=== PATIENT | male | born 1960 | race Caucasian/White ===

== ENCOUNTER 2016-10-06 23:59 | Inpatient (IN) | payer MEDICARE ==
--- NOTE | ~2016-10-06 | CO ---
Unit #: [id number] #: [id number] Patient: JOMAR LAKE [id number] [address] [address] [id number] I MR#: [id number] NAME: JOMAR LAKE ROOM: 84466 Age: 56 Sex: M Admission Date: 10/07/2016 : 1960 Attending Physician: Darrick Villegas M.D. Primary Care Physician: No Primary Care Physician CONSULTATION REPORT REASON FOR ADMISSION Volume overload/dyspnea. REASON FOR CONSULTATION Diabetic management. HISTORY OF PRESENT ILLNESS The patient is a very pleasant 56-year-old male, longstanding history of noncompliance, prior history of coronary artery disease, heart failure, AICD placement. Continues to smoke on a daily basis. He has a prior history of noncompliance, sleep apnea with noncompliance, as well. He states he became more and more dyspneic over the past several days. He has had progressive edema, progressive increase in abdominal girth. He subsequently was admitted for above. Currently he is on both Lasix drip, as well as heparin drip, per cardiology service. We were asked to evaluate in regard to his prior history of diabetes. PAST MEDICAL HISTORY 1. Cirrhosis. 2. Chronic respiratory failure. 3. Chronic pain syndrome. 4. Heart failure, likely systolic and diastolic, with ejection fraction, I believe, close to 25%. 5. Coronary artery disease history with numerous stents, I believe close to 17. 6. Dual-chamber ICD placement. 7. Hypertension. 8. Hyperlipidemia. 9. Sleep apnea. SOCIAL HISTORY Positive tobacco use. Social alcohol use. Negative illicit drug use. FAMILY HISTORY Positive coronary artery disease. ALLERGIES Ativan. HOME MEDICATIONS Include amiodarone, Aricept, Bumex, Combivent, Eliquis, Neurontin, Unit #: [id number] #: [id number] Patient: JOMAR LAKE hydralazine, Imdur, Levemir, lisinopril, NovoLog, potassium, Protonix, Ranexa, simvastatin, Spiriva, Symbicort. PHYSICAL EXAMINATION VITAL SIGNS: Temperature 97.9, pulse 61, respiratory rate 18, blood pressure 127/62. GENERAL APPEARANCE: The patient is a morbidly obese 56-year-old male who is lying comfortably. No acute distress. HEAD EXAM: Atraumatic, normocephalic. EAR EXAM: Tympanic membranes do not reveal any erythema or injection. NECK: JVD noted. No accessory muscle use noted. CVS: S1, S2. No murmur heard. RESPIRATORY: Very poor air exchange is noted. GI/ABDOMEN: Distention noted. Nontender. LOWER EXTREMITIES: Noted is 2 to 3+ lower extremity edema. Right lower extremity is currently dressed. Left lower extremity shows weeping sores present on plantar surface of the left foot. NEUROLOGIC EXAM: Patient A and O x3. No evidence of any focal nerve deficits. DIAGNOSTIC STUDIES LABS: Laboratory studies how a hemoglobin A1C of 9.4%. INITIAL ADMISSION DIAGNOSES 1. Dyspnea, likely multifactorial in origin. 2. Acute on chronic systolic heart failure. 3. Longstanding history of noncompliance. 4. Coronary artery disease. 5. Chronic pain syndrome. 6. Acute on chronic respiratory failure. 7. Obstructive sleep apnea with noncompliance. 8. Prior history of hypertension. 9. Hyperlipidemia. 10. Coronary artery disease. 11. Type 2 diabetes. PLAN We will follow along with you, Dr. Villegas, in regard to the care of this patient. Patient will be placed on a NovoLog low dose sliding scale insulin with Accu-Cheks q.a.c., q.h.s. Pulmonary service has already been consulted, as well. We will ask wound care to evaluate in regard to his bilateral lower extremity wounds, as well. Further hospital course to follow. Dictated by... Astrid Mascorro/clemencia TD: 10/07/2016 12:43 JOB #: [id number] Unit #: [id number] #: [id number] Patient: JOMAR LAKE CONSULTATION REPORT Page 1 of 1 X Lior Magdaleno MD CONSULTATION REPORT
--- NOTE | ~2016-10-06 | EKG ---
PATIENT: JOMAR LAKE UNIT #: [id number] Ventricular Rate: 81 BPM Atrial Rate: 77 BPM QRS Duration: 254 ms Q-T Interval: 580 ms QTC Calculation(Bezet): 673 ms Calculated R Murphy: -127 degrees Calculated T Murphy: 23 degrees Diagnosis Line: Wide QRS rhythm with occasional Premature Diagnosis Line: ventricular complexes Diagnosis Line: Right bundle branch block with repolarization Diagnosis Line: abnormality Diagnosis Line: Inferior infarct , age undetermined Diagnosis Line: Abnormal ECG Diagnosis Line: When compared with ECG of 07-OCT-2016 01:58, Diagnosis Line: (unconfirmed) Diagnosis Line: Wide QRS rhythm has replaced Electronic Diagnosis Line: ventricular pacemaker Diagnosis Line: Confirmed by DENISE JANG MD ([id number]) on 10/07/2016 Diagnosis Line: 2:46:32 PM INTERPRETING MD: SUHAIL DOCKERY
--- NOTE | ~2016-10-06 | CO ---
Unit #: [id number] #: [id number] Patient: JOMAR LAKE [id number] [address] [place], [place] [address] [id number] I MR#: [id number] NAME: JOMAR LAKE ROOM: 324 Age: 56 Sex: M Admission Date: 10/07/2016 : 1960 Attending Physician: Candace Hall M.D. Primary Care Physician: Joyce Primary Care Physician Consultation Date: 10/10/2016 CONSULTATION REPORT REASON FOR CONSULTATION Hematuria. HISTORY This 56-year-old man with multiple significant medical problems has been admitted for dyspnea and prolonged diuresis. A brief tinge of blood was noted in his Blair catheter urine today, which he ascribes to stepping on it accidentally. It cleared promptly. He does have an impressive smoking history but he has never had any gross hematuria. He denies any urinary difficulties or history of infection. He had a small stone pass many years ago. The hematuria he experienced at bedside was transient and a direct result of catheter trauma. He is clear. PAST MEDICAL HISTORY Includes cirrhosis, chronic respiratory failure, chronic pain syndrome, congestive heart failure, coronary artery disease, AICD, PTCA, hypertension, dyslipidemia, morbid obesity, sleep apnea, tobacco abuse. PAST SURGICAL HISTORY Surgeries include PTCA, ICD. MEDICATIONS Amiodarone, Aricept, Bumex, Combivent, Eliquis, gabapentin, hydralazine, Imdur, Levemir, lisinopril, NovoLog, potassium, Protonix, Ranexa, simvastatin, Spiriva, Symbicort. ALLERGIES Ativan. FAMILY HISTORY Negative for prostate cancer. SOCIAL HISTORY Prior three pack per day smoker, now still smokes but less. REVIEW OF SYSTEMS Includes dyspnea, lower extremity and abdominal edema. Chronic pain, sleep apnea, otherwise negative system review. PHYSICAL EXAMINATION GENERAL: Patient is morbidly obese, sitting up in his chair with clear yellow urine and Blair catheter bag. ABDOMEN: 08/19/2106, no appreciable findings. : Normal circumcised penis. Testes normal descent. Unit #: [id number] #: [id number] Patient: JOMAR LAKE RECTAL: Digital deferred. EXTREMITIES: Marked edema. DIAGNOSTIC STUDIES LABORATORIES: Creatinine 0.8, glucose 328. CBC - unremarkable. Admission urinalysis normal with no blood. Urine culture was sent today pending. IMPRESSION Hematuria due to Blair catheter in context of anticoagulation therapy. No clear indication for workup. PLAN Would followup on urine cultures sense it is done but otherwise removed catheter when satisfied with diuresis. Please reconsult as needed. Dictated by... Astrid Christine/abhilash TD: 10/11/2016 08:08 JOB #: [id number] CC: Darrick Villegas M.D. CONSULTATION REPORT Page 1 of 1 X Bimal Bahena MD X CONSULTATION REPORT
--- NOTE | ~2016-10-06 | EKG ---
PATIENT: JOMAR LAKE UNIT #: [id number] Ventricular Rate: 63 BPM Atrial Rate: 63 BPM P-R Interval: 160 ms QRS Duration: 128 ms Q-T Interval: 550 ms QTC Calculation(Bezet): 562 ms P [place]: 50 degrees Calculated R [place]: 80 degrees Calculated T [place]: 95 degrees Diagnosis Line: Sinus rhythm with occasional Premature ventricular Diagnosis Line: complexes Diagnosis Line: Possible Left atrial enlargement Diagnosis Line: Non-specific intra-ventricular conduction block Diagnosis Line: Abnormal ECG Diagnosis Line: When compared with ECG of 07-OCT-2016 06:09, Diagnosis Line: Premature ventricular complexes are now Present Diagnosis Line: T wave inversion less evident in Anterolateral Diagnosis Line: leads Diagnosis Line: QT has lengthened Diagnosis Line: Confirmed by STEVO DENNIS MD ([id number]) on 10/09/2016 Diagnosis Line: 10:48:59 PM INTERPRETING MD: JEANNIE DOCKERY
--- NOTE | ~2016-10-06 | EKG ---
PATIENT: JOMAR LAKE UNIT #: [id number] Ventricular Rate: 66 BPM Atrial Rate: 66 BPM P-R Interval: 208 ms QRS Duration: 124 ms Q-T Interval: 464 ms QTC Calculation(Bezet): 486 ms P [place]: 45 degrees Calculated R [place]: 86 degrees Calculated T [place]: 118 degrees Diagnosis Line: Normal sinus rhythm Diagnosis Line: Non-specific intra-ventricular conduction delay Diagnosis Line: ST and T wave abnormality, consider anterolateral Diagnosis Line: ischemia Diagnosis Line: Abnormal ECG Diagnosis Line: No previous ECGs available Diagnosis Line: Confirmed by DENISE JANG MD ([id number]) on 10/07/2016 Diagnosis Line: 2:47:02 PM INTERPRETING MD: SUHAIL DOCKERY
--- NOTE | ~2016-10-06 | DS ---
Unit #: [id number] #: [id number] Patient: JOMAR LAKE [id number] [place] [address] [facility]. [place], [place] [address] [id number] I MR#: [id number] NAME: JOMAR LAKE ROOM: 324 Age: 56 Sex: M Admission Date: 10/07/2016 : 1960 Discharge Date: 10/12/2016 Attending Physician: Candace Hall M.D. DISCHARGE SUMMARY ADDENDUM TO [facility] #[id number]. ADDENDUM The patient's discharge was delayed a couple of days because of arrhythmias. His awake overnight monitor showed a wide complex tachycardia; however, the ventricular rate was about 100 beats per minute. He would then simultaneously go back into normal sinus rhythm but he does have an interventricular conduction delay. When he is in normal sinus rhythm, it does look like he has some bigeminy. The patient's beta rufus was changed from carvedilol to metoprolol tartrate. That was started yesterday. The patient last night continued to have some runs of arrhythmia. It is noted that his potassium and magnesium were normal. In looking back on his previous records, he had been on amiodarone at one point. [employer] customer service representative, [place], interrogated the device again for the second time on his admission. She said it was not a ventricular tachycardia that could be shocked. The ventricular rate was slow at about 100 beats per minute which likely she thought maybe he was switching to a bundle branch block and some kind of sinus tachycardia. The device was functioning properly. In looking back on his previous medications, he had been on amiodarone at one time and that will be added to his regimen. The patient insists on going home today. For the past several hours, there have been no runs of this wide complex tachycardia or PVCs. He got a loading dose of amiodarone 400 mg p.o. times one and wrote a prescription for amiodarone 200 mg p.o. twice daily for one week and then decreased down to 200 mg p.o. daily maintenance dose. Also, increased his beta rufus to metoprolol tartrate 50 mg p.o. twice daily. The patient is also on Entresto along with Eliquis. We will continue. The patient reports to me that he made an appointment with Dr. Tilley this afternoon and he wants to leave to go see him. I did explain to the patient he needed to take all of his medications home and take the discharge instructions with the medications listed to see Dr. Tilley. Dr. Tilley is his cash applications representative at [facility]. The patient will leave in stable condition. No complaints of chest pain, palpitations, shortness of breath or no distress. The patient wants to follow up with his cash applications representative, Dr. Tilley. The patient has been encouraged to be compliant with his medical regimen along with his appointments. On time of discharge, the patient's vital signs are stable. No signs or symptoms of acute congestive heart failure, unstable angina and his lungs appear to be diminished but clear. Dictated by... Sheila Doshi A.P.R.N. for Unit #: [id number] #: [id number] Patient: JOMAR LAKE M.D. CEC/desirae TD: 10/12/2016 14:29 JOB #: [id number] DISCHARGE SUMMARY Page 1 of 1 X Sheila Doshi APRN X DISCHARGE SUMMARY
--- NOTE | ~2016-10-06 | CR72 ---
[facility] A Service of [facility] RADIOLOGY TEXT RESULTS PATIENT: JOMAR LAKE [facility] 324-01 : 56 UNIT #: [id number] AGE: [address]: Candace Hall MD SEX: M ORDER DR: [id number] [facility] [address] [place], [place] [address] [id number] I MR#: [id number] Acc #: [id number] NAME: JOMAR LKAE : 1960 SEX: M STUDY DATE/TIME: 10/07/2016 2:22 UNIT: CEDOF ROOM: 77600 STUDY DESCRIPTION: CR Chest Single View Portable Attending Physician: Darrick Villegas M.D. Ordering Physician: Ash Berrios Aprn MEDICAL IMAGING REPORT This report is preliminary unless electronic signature is present EXAM Chest x-ray 10/07/2016 HISTORY 56-year-old male in the ED complaining of 1-week history of chest pain, shortness of air and leg swelling. TECHNIQUE AP portable chest x-ray. FINDINGS The exam shows stable moderate cardiomegaly and postop changes CABG surgery. Mild diffuse interstitial prominence is exaggerated by shallow lung expansion but does appear slightly more prominent today than on yesterday's study. Correlate for mild vascular congestion. Fluid or pleural thickening is again noted in the left costophrenic angle. Cardiac pacemaker. IMPRESSION 1. Cardiomegaly with possible mild vascular congestion. 2. CABG. 3. Fluid or pleural thickening left costophrenic angle. Dictated by... Jorge A Abdalla M.D. THIS IS AN ELECTRONICALLY VERIFIED REPORT Jorge A Abdalla M.D. at 10/12/2016 9:15 AM SHANNONW/aure TD: 10/07/2016 03:09 JOB #: [id number] [facility] A Service [facility] RADIOLOGY TEXT RESULTS PATIENT: JOMAR LAKE LOCATION: [facility] 324-01 : 56 UNIT #: [id number] AGE: [address]: Candace Hall MD SEX: M ORDER DR: MEDICAL IMAGING REPORT Page 1 of 1 COPY
--- NOTE | ~2016-10-06 | A ---
[facility] Nutrition Therapy DATE: 10/07/16 Patient: JOMAR LAKE Physician: ASHLY Address: [address] [place] [address] Room/Bed: [address] [place] [address], Zip: [place] [phone] Admit Date: 10/07/16 Date of : 56 Height: 5 9 Weight: 273 124 NUTRITIONAL ASSESSMENT: REASON: Consult received for low sodium diet education Assessment: RD spoke with the pt at bedside. Pt admitted that he does not follow a specific diet, and tends to eat what he wants. Pt does not read nutrition labels. RD educated the pt on how to follow a low sodium diet, and how to utilize nutrition labels to do so. Pt seemed somewhat interested in learning about the prescribed diet, and interacted with RD throughout education. Mild/moderate compliance expected. RD provided the pt with printed materials for reference, and encouraged him to contact RD with any further questions. Recommendations: 1. Pt to follow 2 gram Na+/ CC diet as prescribed by . 2. Contact RD with any nutritional questions. Please contact RD with any further nutritional needs. Respectfully, SULLY FAROOQ RD, LD Food and Nutritional Services [facility] cc: client file
--- NOTE | ~2016-10-06 | HP ---
Unit #: [id number] #: [id number] Patient: JOMAR LAKE [id number] [address] [place], [place] [address] [id number] Jody MR#: [id number] NAME: JOMAR LAKE ROOM: 68226 Age: 56 Sex: M Admission Date: 10/07/2016 : 1960 Attending Physician: Darrick Villegas M.D. Primary Care Physician: No Primary Care Physician HISTORY AND PHYSICAL CHIEF COMPLAINT Dyspnea. HISTORY OF PRESENT ILLNESS Mr. Lake is a pleasant 56-year-old gentleman with a history of coronary artery bypass grafting and atrial implantable cardioverter defibrillator times 2. He has continued to smoke. He has a history of diabetes, hypertension and dyslipidemia, but denies a family history of coronary disease. He has a CPAP, but does not use it. He notes that over the past week he has become more and more dyspneic, coughing more and more, noted progressive edema, and progressive increase in abdominal girth. He has a known ejection fraction of 25% back in 2008, at which time he underwent his coronary artery bypass grafting. I was informed after I completed the history, physical and orders that the patient was a Dr. Hall patient. He will be transferred over to her care. He told me that his learning center coordinator was Dr. Tilley. PAST MEDICAL HISTORY 1. Cirrhosis. 2. Chronic respiratory failure. 3. Chronic pain syndrome. 4. Congestive heart failure. 5. Chronic systolic, ejection fraction 25%. 6. Coronary artery disease status post cardiac catheterization in 2008, showing mid LAD 100%, graft to the LAD good flow, saphenous vein graft to the diagonal good flow, 90% circumflex with saphenous vein graft to the first marginal circumflex normal, 99% in-stent stenosis of the RCA, with 99% occlusion of the saphenous vein graft to the posterior descending artery of the RCA. 7. Dual chamber ICD, cardioverted defibrillator, [employer], Dr. Estrella. Apparently replaced twice. 8. PTCA in 2008 of the RCA. 9. Hypertension. 10. Dyslipidemia. 11. Exogenous obesity. 12. Untreated obstructive sleep apnea. He has a machine at home, but says he does not like to use it. 13. Last echo on record 10/06/2014, ejection fraction 20%. SOCIAL HISTORY Unit #: [id number] #: [id number] Patient: JOMAR LAKE Continues to smoke on a regular basis. Nicotine patch placed. FAMILY HISTORY Negative for premature atherosclerotic disease. ALLERGIES Ativan. CURRENT MEDICATIONS 1. Amiodarone 200 mg daily. 2. Aricept 10 mg daily. 3. Bumex 2 mg daily. 4. Combivent inhaler. 5. Eliquis. 6. Gabapentin. 7. Hydralazine 25 mg t.i.d. 8. Imdur 60 mg daily. 9. Levemir. 10. Lisinopril 5 mg daily. 11. NovoLog insulin. 12. Potassium 20 mEq daily. 13. Protonix 40 mg daily. 14. Ranexa 1 g b.i.d. 15. Simvastatin 20 mg daily. 16. Spiriva 18 mcg per capsule. 17. Symbicort. PHYSICAL EXAMINATION GENERAL: Pleasant, alert, no acute distress. VITALS: Heart rate 64 and regular, respiratory rate 22, blood pressure 123/68, height 5'9", weight 284 pounds, BMI 41. PHYSICAL EXAMINATION GENERAL: Pleasant, alert, in no acute distress. VITAL SIGNS: Respiratory rate , blood pressure , heart rate and regular. SKIN: Warm and dry. No xanthelasma. MUSCULOSKELETAL: No missing digits. Moves easily for evaluation. NEUROLOGICAL: Appropriate mood and affect. Alert and oriented x3. HEENT: Pupils equal, round and reactive. No oral cyanosis. No icterus. NECK: Carotids clear to auscultation with no carotid bruits. Normal carotid upstroke bilaterally. Thyroid is normal in size and texture without masses or tenderness. CHEST: Pacemaker placed left upper chest. LUNGS: Rales one-half up bilaterally. CARDIAC: Normal point of maximum impulse. Normal S1 and S2. No S3, S4 or rub. ABDOMEN: Moderate ascites without tenderness. EXTREMITIES: No clubbing, cyanosis, 4+ edema bilaterally. Cannot assess distal pulses. Right leg is wrapped. DIAGNOSTIC STUDIES LABORATORY: Creatinine 0.8, potassium 4.1, sodium 133, magnesium not assessed. Troponin 0.03. Total cholesterol 117, triglycerides 72, HDL 54, TSH not yet returned. Hemoglobin A1c not yet returned. Hemoglobin 14.1, white blood cell count 10.9, platelets 152,000. CARDIOVASCULAR: ECG today shows sinus rhythm with T wave inversion V3 through V6. Last evening unusual tracings appeared to be biventricular Unit #: [id number] #: [id number] Patient: JOMAR LAKE pacing, with sinus rhythm first degree AV block. ASSESSMENT Acute on chronic systolic congestive heart failure. We reviewed his sodium intake and it is very high. He is on lisinopril currently. Will switch him over to Entresto. He will be transferred to Dr. Hall's service. Will start Lasix drip. He has had one liter out, but I estimate he has about 25 pounds of fluid on him currently between his ascites and his legs. Will have him instructed from dietitian. ASSESSMENT/PLAN 1. Tobacco abuse continues despite severe and significant coronary disease, bypasses and stents. Advised to discontinue smoking. 2. Exogenous obesity, morbid. 3. Hypertension, treated. 4. Dyslipidemia, treated. 5. Diabetes. We will have medicine see him. They also need to treat his chronic pain syndrome. 6. Untreated sleep apnea. Ask Dr. Rangel to stop by and see him for machine adjustment. 7. I suspect he will be here for four to five days to diurese him slowly, and get him to baseline. Dictated by Astrid Beltrán/guillermo TD: 10/07/2016 08:46 JOB #: [id number] CC: Raz Tilley IV., M.D. HISTORY AND PHYSICAL Page 1 of 1 X Darrick Villegas MD HISTORY AND PHYSICAL
--- NOTE | ~2016-10-06 | DS ---
Unit #: [id number] #: [id number] Patient: JOMAR LAKE [id number] [address] [address] [id number] I MR#: [id number] NAME: JOMAR LAKE ROOM: 324 Age: 56 Sex: M Admission Date: 10/07/2016 : 1960 Discharge Date: 10/10/2016 Attending Physician: Candace Hall M.D. Primary Care Physician: Joyce Primary Care Physician DISCHARGE SUMMARY ADMITTING DIAGNOSES 1. Acute on chronic systolic CHF. 2. Tobacco abuse. 3. CAD with history of CABG and stents. 4. Morbid obesity. 5. Hypertension. 6. Hyperlipidemia. 7. Diabetes mellitus. 8. Acute exacerbation of COPD. 9. Chronic kidney disease. DISCHARGE DIAGNOSES 1. Acute on chronic systolic congestive heart failure, compensated. 2. Tobacco abuse. 3. Coronary artery disease with history of coronary artery bypass graft and stents. 4. Morbid obesity. 5. Hypertension. 6. Hyperlipidemia. 7. Diabetes mellitus. 8. Chronic obstructive pulmonary disease, improved at the time of discharge. 9. Chronic kidney disease. CONSULTING PHYSICIANS 1. Dr. Rangel for pulmonary. 2. Dr. Magdaleno for internal medicine. HOSPITAL COURSE The patient is a 56-year-old male who presented to [facility] with complaints of shortness of breath. He follows with Dr. Tilley. He was started on a Lasix drip for acute on chronic systolic CHF and he was also started on IV Solu-Medrol as well as DuoNeb, Dulera, and Zithromax by pulmonary. The patient also has probable obstructive sleep apnea, but refuses a workup for sleep apnea. The patient was later changed over to oral prednisone and IV Bumex on 10/10/2016. The patient denies shortness of breath at the time of discharge. DIAGNOSTIC STUDIES LABORATORY: Labs at the time of discharge from 10/09/2016: Sodium 133, potassium 3.6, chloride 84, CO2 41, glucose 328, BUN 19, creatinine 0.8, magnesium 1.9, white blood cells 10.1, hemoglobin 14, hematocrit 43.3, and platelets are 150. Unit #: [id number] #: [id number] Patient: JOMAR LAKE IMAGING: Chest x-ray from 10/08/2016 shows cardiomegaly. Mild vascular congestion. Slight increase in left base opacity, probably secondary to left pleural effusion. At the time of discharge, the patient's vitals are stable. Blood pressure is 145/97, heart rate 69, respiratory rate is 18, and temperature is 98. DISCHARGE MEDICATIONS 1. Coreg 12.5 mg twice daily. 2. Symbicort 160 two puffs b.i.d. 3. Aricept 23 mg daily. 4. Bumex 1 mg twice daily. 5. Zocor 20 mg daily. 6. Levemir 30 units subcu. q.a.m. 7. Combivent mini-nebs 4 times daily. 8. Prednisone 20 mg with tapered dose. 9. Entresto 24/ twice daily. 10. Eliquis 5 mg twice daily. 11. Neurontin 800 mg q.6 hours. 12. Lexapro 10 mg daily. 13. Phenergan 25 mg 3 times daily. 14. Nicotine patch ofly-pqo-tomzxbc 14 mg daily. 15. Restoril 15 mg q.h.s. p.r.n. DISCHARGE INSTRUCTIONS 1. Mr. Lake will be discharged home. 2. He will follow up with Dr. Tilley in 2-3 weeks. 3. He will follow up with Dr. Rangel's nurse practitioner in two weeks. 4. The patient will return to his regular activity as tolerated. 5. He will follow a heart healthy diet. Dictated by... Nadja Rodriguez, P.A.C. for Dirk Mitchell M.D. CMG/smitha TD: 10/11/2016 09:49 JOB #: [id number] DISCHARGE SUMMARY Page 1 of 1 X X DISCHARGE SUMMARY
--- NOTE | ~2016-10-06 | CO ---
Unit #: [id number] #: [id number] Patient: JOMAR LAKE [id number] [address] [place], [place] [address] [id number] MR#: [id number] NAME: JOMAR LAKE ROOM: 324 Age: 56 Sex: M Admission Date: 10/07/2016 : 1960 Attending Physician: Darrick Villegas M.D. Primary Care Physician: No Primary Care Physician Consultation Date: 10/07/2016 CONSULTATION REPORT REASON FOR CONSULTATION Sleep apnea, shortness of breath. HISTORY OF PRESENT ILLNESS Patient is a 56-year-old gentleman who has multiple medical problems including COPD with ongoing active smoking, obstructive sleep apnea intolerant to CPAP, severe left ventricular dysfunction with an EF of 20% to 25%, chronic respiratory failure on oxygen at home, presents with shortness of breath. He stated that he had some shortness of breath, presented to the emergency room, was told he had pneumonia and treated with antibiotics but he cannot add specifics. He then re-presented to the emergency room with vague symptoms including shortness of breath, mucopurulent sputum, no documented fever. No chest pain. He was found to be in heart failure and cardiology has admitted the patient and put him on a diuretic drip. He also has some wheezing. We are asked to evaluate for possible re-evaluation of sleep apnea. Quite frankly, the patient is intolerant to CPAP and he refuses any further attempts at improving his compliance including making minimal changes in pressure at home. PAST MEDICAL HISTORY 1. COPD. 2. Chronic respiratory failure. 3. Severe left ventricular dysfunction. 4. Obstructive sleep apnea, intolerant to CPAP. 5. Diabetes. 6. Coronary artery disease. 7. Chronic pain. 8. Remote history of craniotomy. 9. History of AICD. 10. Hyperlipidemia. HOME MEDICATIONS He states he is on: 1. Symbicort twice a day. 2. Spiriva once a day. 3. As needed albuterol. He states compliance. He cannot tell me his other exact medications but according to the EHR, he is on: 1. Amiodarone. 2. Aricept. 3. Bumex. 4. Eliquis. Unit #: [id number] #: [id number] Patient: JOMRA LAKE 5. Gabapentin. 6. Hydralazine. 7. Imdur. 8. Levemir. 9. Lisinopril. 10. Potassium. 11. Protonix. 12. Ranexa. 13. Simvastatin. ALLERGIES Ativan. SOCIAL HISTORY He continues to smoke. FAMILY HISTORY No familial lung disease that he is aware of. REVIEW OF SYSTEMS He has chronic pain and is desiring his pain medications. No fever, chills, weight loss. Intolerant to CPAP. Does have wheezing, occasional sputum production. No fever. No chest pain, palpitations, abdominal pain, melena, hematochezia, hematemesis, hematuria, dysuria, focal weakness, paraesthesias. He has noted swelling in his legs and in fact, his right leg is wrapped with what looks like an Unna boot. No focal weakness, paraesthesias. No increase in his chronic pain that he has communicated. PHYSICAL EXAMINATION VITAL SIGNS: Reveals a patient who is afebrile. Pulse 64, respiratory rate 18, blood pressure 127/62. Height 5 foot 9 inches, weight 284. BMI is 41. HEENT: Pupils equal, round, and reactive to light. Sclerae anicteric. Head atraumatic. NECK: Supple. No supraclavicular or cervical adenopathy. A very large neck. He has a full mendez in place. Mallampati class IV oropharynx. He is edentulous. CHEST: Expiratory wheeze throughout all lung slaughter. No consolidation or stridor. CARDIAC: Reveals distant heart tones. Regular rate and rhythm. No pathologic murmur, rub, or gallop. ABDOMEN: Soft, nontender. Obese. No rebound. EXTREMITIES: Reveal no clubbing, cyanosis. He does have edema. His right leg is wrapped in what appears to be an Unna boot. NEUROLOGIC: Grossly intact. No focal muscle or sensory deficits. DIAGNOSTIC STUDIES LABORATORY: Arterial blood gas has not been performed. BUN is 15, creatinine 0.8, blood sugar is 352 upon presentation to the emergency room. Hemoglobin A1c two years ago was 9.4. INR normal. Initial cardiac enzymes negative. CBC essentially normal. White blood cell count is 10.9. Urinalysis: Glucosuria. IMAGING: Chest x-ray: He has an area in his left lower lobe, atelectasis versus some pleural thickening. Doubt pneumonia, but cannot rule out entirely. Unit #: [id number] #: [id number] Patient: JOMAR LAKE CARDIOVASCULAR: EKG: Sinus rhythm. Nonspecific ST-T wave changes septal leads and laterally. IMPRESSION 1. Acute exacerbation of chronic obstructive pulmonary disease. 2. Congestive heart failure. 3. Obstructive sleep apnea, intolerant to CPAP, refuses further evaluation or treatment. 4. Abnormal chest x-ray, left lower lobe atelectasis, doubt pneumonia. 5. Diabetes. 6. Tobacco use. 7. Coronary artery disease, abnormal EKG. 8. Medical problems listed above. PLAN 1. Treatment of his chronic obstructive pulmonary disease. 2. Sliding scale insulin for anticipated hyperglycemia. 3. Antibiotics for bronchitis. 4. We will check a procalcitonin level and a good PA and lateral chest x-ray and certainly if it appears that he has pneumonia, then adjustment in his antibiotics will be made. No smoking is of great benefit and this was discussed. Again, he refuses any further workup or evaluation for his sleep apnea. Thank you very much for allowing me to participate in the care of Mr. Lake. Dictated by... Aj Rangel M.D. JOSEY/richelle TD: 10/07/2016 14:23 JOB #: [id number] CONSULTATION REPORT Page 1 of 1 X Aj Rangel MD X CONSULTATION REPORT
--- NOTE | ~2016-10-06 | CR63 ---
[facility] A Service of [facility] & [facility] RADIOLOGY TEXT RESULTS PATIENT: JOMAR LAKE LOCATION: [facility] 324-01 : [birth year] UNIT #: [id number] AGE: [address]: Candace Hall MD SEX: M ORDER DR: [id number] [facility] [address] [place], [place] [address] [id number] MR#: [id number] Acc #: [id number] NAME: JOMAR LAKE : 1960 SEX: M STUDY DATE/TIME: 10/08/2016 7:39 UNIT: [address] ROOM: [facility] STUDY DESCRIPTION: CR Chest 2 View Attending Physician: Candace Hall M.D. Ordering Physician: Aj Rangel M.D. Primary Care Physician: No Primary Care Physician MEDICAL IMAGING REPORT This report is preliminary unless electronic signature is present EXAM Portable chest one-view 10/08/2016 COMPARISON 10/07/2016 CLINICAL HISTORY Short of air for 5 days. FINDINGS Redemonstrated cardiomegaly, pacemaker remains. Mild vascular congestion probably not significantly changed since the prior study. Slightly increased opacity at the left base, probably secondary to left pleural effusion. Dictated by... Allan Valerio M.D. THIS IS AN ELECTRONICALLY VERIFIED REPORT Allan Valerio M.D. at 10/08/2016 3:35 PM TEV/aa TD: 10/08/2016 11:07 JOB #: [id number] MEDICAL IMAGING REPORT Page 1 of 1 COPY
[~2016-10-06 23:59] MED LIST: ACCUPRIL PO; ACIPHEX20 MG PO; ALBUTEROL1.25 MG/3 IH; ALBUTEROL1.25 MG/3 INH; ALBUTEROL2.5 MG/0.5 INH; ALDACTONE PO; ALDACTONE25 MG PO; AMIODARONE HCL400 MG PO; AMIODARONE PO; APRESOLINE PO; ARICEPT5 MG PO; ASPIRIN PO; ASPIRIN325 M1 PO; ASPIRIN81 MG PO; ATARAX PO; AZITHROMYCIN250 MG PO; BENZONATATE PO; BUMEX2 MG PO; CARVEDILOL25 MG PO; CARVEDILOL3.125 MG PO; CHANTIX PO; CLOPIDOGREL75 MG PO; COMBIVENT INH14.7 GM INH; COMBIVENT MININEB INH; COMBIVENT RESPIM4 GM INH; COMBIVENT U/D3 M2 INH; COMBIVENT U/D3 ML INH; CORDARONE200 M1 PO; COREG PO; COREG12.5 MG PO; COREG6.25 MG PO; CORTISONE14 GM TP; DIS S SUBQ; DONEPEZIL HCL10 MG PO; DOXYCYCLINE PO; ELIQUIS5 MG PO; FELDENE20 MG PO; FLEXERIL PO; FLEXERIL10 MG PO; FLOMAX0.4 MG PO; FUROSEMIDE40 MG PO; GABAPENTIN600 MG PO; GLUCOPHAGE500 MG PO; GRALISE600 MG PO; GUAIFENESIN600 MG PO; HUMULIN 70100 UNITS/ SUBQ; HYDRALAZINE HCL25 MG PO; HYDROCODON-ACE1 EAC5 PO; IMDUR PO; IMDUR-ER60 M1 PO; IMDUR-ER60 M2 PO; INDOMETHACIN75 MG PO; INSULIN SUBQ; INSULIN SY MC; INVOKANA100 MG PO; IPRAT-ALBUT 0.5-3 ML IH; ISMO20 MG PO; ISORDIL40 MG PO; ISOSORBIDE MONO60 M1 PO; K-DUR20 ME1 PO; LASIX PO; LASIX20 MG PO; LEVEMIR SQ; LEVEMIR SUBQ; LEVEMIR100 UNITS/ SUBQ; LIPITOR PO; LIPITOR40 MG PO; LISINOPRIL PO; LISINOPRIL10 MG PO; LISINOPRIL20 MG PO; LISINOPRIL5 MG PO; LOPRESSOR PO; LORTAB 5/500 TA1 TA1 PO; MAG-OXIDE400 MG PO; MEDROL PO; METFORMIN HCL500 M1 PO; MORGIDOX100 MG PO; MUCUS ER600 MG PO; NAPROXEN PO; NEURONTIN PO; NEURONTIN300 MG PO; NEURONTIN600 MG DOB; NEURONTIN800 MG PO; NICODERM C1 PATCH .1 TD; NICOTINE TRANSD21 MG EXT; NITROGLYGERIN0.4 MG SL; NITROGYLCERIN SUBLINGUAL; NORCO 10-325 TA1 TAB PO; NORCO 10/3251 TAB PO; NOVOLIN 70/30 V10 M1 SQ; NOVOLOG100 U/ML SQ; NOVOLOG100 U/ML SUBQ; NOVOLOG100 UNITS/ SUBQ; OXYCODON HCL-1 UDTAB PO; OXYCODON HCL-AP1 TA2 PO; OXYCODONE-ACET1 EACH PO; OXYGEN; PACERONE PO; PANTOPRAZOLE SO40 MG PO; PARAFON FORTE500 MG PO; PERCOCET5/325 PO; PERFOROMIS20 MCG/2 M IH; PLAVIX PO; POTASSIUM CHLO20 ME1 PO; PREDNISONE PO; PREDNISONE10 MG PO; PREDNISONE10 MG/DOSE PO; PRILOSEC PO; PROAIR HFA8.5 GM INH; PROTONIX PO; PROTONIX20 MG PO; PROZAC PO; PULMICORT0.5 MG/2 M IH; RANEXA1000 MG PO; RESTORIL15 MG PO; SEROQUEL PO; SIMVASTATIN20 MG PO; SPIRIVA18 MCG INH; SYMBICORT INH; TOPROL XL PO; TRIAMCINOLONE A15 G2 EXT; TUSSIONEX PENN473 ML PO; VICODIN 5/500 T1 TAB PO; VISTARIL PO; ZESTRIL5 MG PO; ZITHROMAX PO; ZITHROMAX500 MG PO; ZOCOR PO; ZOCOR20 MG PO; [UNRECOGNIZED DRUG - OTHER] MC
[2016-10-07] MEDS ORDERED: ARICEPT23 MG PO (01:22)
[2016-10-07] MEDS ORDERED: K-TAB ER20 MEQ PO (01:23)
[2016-10-07] MEDS ORDERED: ESCITALOPRAM OX10 MG PO (01:23)
[2016-10-07] MEDS ORDERED: PANTOPRAZOLE SO40 MG PO (01:23)
[2016-10-07] MEDS ORDERED: RANEXA1000 MG PO (01:24)
[2016-10-07] MEDS ORDERED: SIMVASTATIN20 MG PO (01:25)
[2016-10-07] MEDS ORDERED: PRINIVIL5 MG PO (01:27)
[2016-10-07] MEDS ORDERED: PHENERGAN25 M1 PO (01:27)
[2016-10-07] MEDS ORDERED: RESTORIL15 MG PO (01:27)
[2016-10-07] MEDS ORDERED: COREG12.5 MG PO (01:28)
[2016-10-07] MEDS ORDERED: ELIQUIS5 MG PO (01:28)
[2016-10-07] MEDS ORDERED: NEURONTIN800 MG PO (01:31)
[2016-10-07] MEDS ORDERED: OXYCODONE-ACET1 EAC1 PO (01:31)
[2016-10-07 02:28] LABS: POC - CKMB 2.7 ng/mL (0.0-7.9); POC - TROPONIN <0.05 ng/mL (<=0.05)
[2016-10-07 03:06] LABS: BASOPHIL% 0.1 % (0-2.5); DIFF IND NO; HEMATOCRIT 44.6 % (38.0-50.0); HEMOGLOBIN 14.1 gm/dL (13.0-16.0); LYMPHOCYTE# 1.1 X10e3 (1.0-3.5); LYMPHOCYTE% 10.3 % (17.0-45.0); MEAN CELL VOLUME 92.1 FL (83-96); MEAN CORPUSCULAR HEMOGLOBIN 29.2 PG (28-34); MEAN CORPUSCULAR HGB CONC 31.7 g/dL (30-36); MEAN PLATELET VOLUME 8.6 FL (6.5-11.5); MONOCYTE# 0.7 X10e3 (0-1.0); MONOCYTE% 6.4 % (3.0-12.0); NEUTROPHIL% 83.2 % (40-75); PLATELET COUNT 152 X10e3 (140-420); RED BLOOD COUNT 4.84 X10e (3.90-5.60); RED CELL DISTRIBUTION WIDTH 15.4 % (11.0-15.5); WHITE BLOOD COUNT 10.9 X10e3 (4.0-10.5)
[2016-10-07 03:22] LABS: INR 1.1; PARTIAL THROMBOPLASTIN TIME 25.2 SECONDS (23.5-31.3); PROTHROMBIN TIME (PATIENT) 11.7 SECONDS (9.6-11.5)
[2016-10-07 03:30] LABS: ALBUMIN SERUM 3.7 g/dL (3.5-5.0); BILIRUBIN, DIRECT 0.1 mg/dL (0.0-0.2); BILIRUBIN,INDIRECT 0.5 mg/dL (0.0-0.9); BILIRUBIN,TOTAL 0.6 mg/dL (0.2-2.0); BUN/CREATININE RATIO 16.66; CALCIUM SERUM 8.4 mg/dL (8.4-10.2); CREATININE SERUM 0.9 mg/dL (0.6-1.4); GLOM FILT RATE Estimated 93.8 mL/min (>60); POTASSIUM 4.6 mmol/L (3.5-5.1); PROTEIN TOTAL SERUM 7.3 g/dL (6.0-8.3)
[2016-10-07 04:35] LABS: URINE SOURCE CLEAN CATCH
[2016-10-07 04:44] LABS: URINE APPEARANCE CLEAR; URINE BILIRUBIN NEG (NEG); URINE BLOOD NEG (NEG); URINE COLOR YELLOW; URINE GLUCOSE >1000 MG/DL (NEG); URINE KETONE NEG (NEG); URINE LEUKOCYTE ESTERASE NEG (NEG); URINE NITRATE NEG (NEG); URINE PH 5.5 (5-8); URINE PROTEIN NEG (NEG); URINE SPECIFIC GRAVITY 1.049 (1.003-1.035); URINE UROBILINOGEN 0.2 MG/DL (NEG)
[2016-10-07 04:54] LABS: CULTURE INDICATED? NO
[2016-10-07 05:06] LABS: POC - TROPONIN <0.05 ng/mL (<=0.05)
[2016-10-07 07:03] LABS: BUN/CREATININE RATIO 18.75; CALCIUM SERUM 8.3 mg/dL (8.4-10.2); CREATININE SERUM 0.8 mg/dL (0.6-1.4); GLOM FILT RATE Estimated 98.5 mL/min (>60); POTASSIUM 4.1 mmol/L (3.5-5.1)
[2016-10-08 03:41] LABS: HEMATOCRIT 45.7 % (38.0-50.0); HEMOGLOBIN 14.3 gm/dL (13.0-16.0); MEAN CELL VOLUME 92.7 FL (83-96); MEAN CORPUSCULAR HEMOGLOBIN 29.1 PG (28-34); MEAN CORPUSCULAR HGB CONC 31.4 g/dL (30-36); MEAN PLATELET VOLUME 8.7 FL (6.5-11.5); RED BLOOD COUNT 4.93 X10e (3.90-5.60); WHITE BLOOD COUNT 7.5 X10e3 (4.0-10.5)
[2016-10-08 04:06] LABS: CALCIUM SERUM 8.2 mg/dL (8.4-10.2); GLOM FILT RATE Estimated 82.6 mL/min (>60); POTASSIUM 3.9 mmol/L (3.5-5.1)
[2016-10-09 06:14] LABS: HEMATOCRIT 43.3 % (38.0-50.0); MEAN CELL VOLUME 90.3 FL (83-96); MEAN CORPUSCULAR HEMOGLOBIN 29.2 PG (28-34); MEAN CORPUSCULAR HGB CONC 32.3 g/dL (30-36); MEAN PLATELET VOLUME 8.3 FL (6.5-11.5); RED BLOOD COUNT 4.8 X10e (3.90-5.60); RED CELL DISTRIBUTION WIDTH 14.6 % (11.0-15.5); WHITE BLOOD COUNT 10.1 X10e3 (4.0-10.5)
[2016-10-09 06:41] LABS: BUN/CREATININE RATIO 23.75; CALCIUM SERUM 8.5 mg/dL (8.4-10.2); CREATININE SERUM 0.8 mg/dL (0.6-1.4); GLOM FILT RATE Estimated 98.5 mL/min (>60); MAGNESIUM 1.9 mg/dL (1.6-3.0); POTASSIUM 3.6 mmol/L (3.5-5.1)
[2016-10-10] MEDS ORDERED: BUMEX1 MG PO (12:39)
[2016-10-10] MEDS ORDERED: COMBIVENT U/D3 M1 INH ×2 (14:54→14:56)
[2016-10-10] MEDS ORDERED: DELTASONE20 MG PO (14:57)
[2016-10-10] MEDS ORDERED: ENTRESTO 24 MG1 EACH (14:58)
[2016-10-10] MEDS ORDERED: ENTRESTO 24 MG1 EACH PO (15:00)
[2016-10-10] MEDS ORDERED: NICOTINE TRANSD14 MG TOP (15:01)
[2016-10-10] MEDS ORDERED: AZITHROMYCIN250 MG PO (15:31)
[2016-10-10] MEDS ORDERED: LEVEMIR100 UNITS/ SUBQ (15:31)
[2016-10-10] MEDS ORDERED: SYMBICORT INH (15:35)
[2016-10-10 20:34] LABS: URINE APPEARANCE CLEAR; URINE BILIRUBIN NEG (NEG); URINE BLOOD 3+ (NEG); URINE COLOR YELLOW; URINE GLUCOSE >1000 MG/DL (NEG); URINE KETONE NEG (NEG); URINE LEUKOCYTE ESTERASE NEG (NEG); URINE NITRATE NEG (NEG); URINE PH 6.5 (5-8); URINE PROTEIN NEG (NEG); URINE SPECIFIC GRAVITY 1.015 (1.003-1.035); URINE UROBILINOGEN 0.2 MG/DL (NEG)
[2016-10-10 20:36] LABS: URBCS1 AUWI 50-100 /[HPF] (0-2); URINE BACTERIA AUWI NEG (NEGATIVE); URINE SQUAMOUS EPITHELIAL CELL NONE SEEN /[HPF]; UWBCS1 AUWI 0-2 (0-5)
[2016-10-11 05:21] LABS: HEMATOCRIT 48.4 % (38.0-50.0); HEMOGLOBIN 15.7 gm/dL (13.0-16.0); MEAN CELL VOLUME 90.5 FL (83-96); MEAN CORPUSCULAR HEMOGLOBIN 29.3 PG (28-34); MEAN CORPUSCULAR HGB CONC 32.4 g/dL (30-36); MEAN PLATELET VOLUME 8.3 FL (6.5-11.5); RED BLOOD COUNT 5.35 X10e (3.90-5.60); RED CELL DISTRIBUTION WIDTH 14.8 % (11.0-15.5); WHITE BLOOD COUNT 8.9 X10e3 (4.0-10.5)
[2016-10-11 06:43] LABS: BUN/CREATININE RATIO 21.25; CALCIUM SERUM 8.7 mg/dL (8.4-10.2); CREATININE SERUM 0.8 mg/dL (0.6-1.4); GLOM FILT RATE Estimated 98.5 mL/min (>60); MAGNESIUM 1.9 mg/dL (1.6-3.0)
[2016-10-12 06:21] LABS: BUN/CREATININE RATIO 24.28; CALCIUM SERUM 8.6 mg/dL (8.4-10.2); CREATININE SERUM 0.7 mg/dL (0.6-1.4); GLOM FILT RATE Estimated 104.1 mL/min (>60); MAGNESIUM 1.9 mg/dL (1.6-3.0); POTASSIUM 4.2 mmol/L (3.5-5.1)
[2016-10-12] MEDS ORDERED: AMIODARONE HCL200 MG PO (10:09)
[2016-10-12] MEDS ORDERED: IMDUR-ER30 M1 PO (10:12)
[2016-10-12] MEDS ORDERED: LOPRESSOR PO (10:13)
[2016-10-12] MEDS ORDERED: ZITHROMAX PO (10:14)
== END 2016-10-12 11:10 | disposition home health service (06) | DRG 291 ==
LOC: CED 23:59 → CEDOF 10-07 02:45 → C3A PCU 10-07 13:08
PROVIDERS: Family Medicine; Internal Medicine Cardiovascular Disease; Nurse Practitioner Family
PROC: B24BYZZ Ultrasonography of Heart with Aorta using Other Contrast (ICD-10-PCS; principal; 2016-10-07)
DX: I13.0 Hypertensive heart and chronic kidney disease with heart failure and stage 1 through stage 4 chronic kidney disease, or unspecified chronic kidney disease (principal); J96.20 Acute and chronic respiratory failure, unspecified whether with hypoxia or hypercapnia; I47.2 Ventricular tachycardia; I50.23 Acute on chronic systolic (congestive) heart failure; T83.83XA Hemorrhage due to genitourinary prosthetic devices, implants and grafts, initial encounter; J44.1 Chronic obstructive pulmonary disease with (acute) exacerbation; Z68.41 Body mass index [BMI] 40.0-44.9, adult; F17.210 Nicotine dependence, cigarettes, uncomplicated; E66.01 Morbid (severe) obesity due to excess calories; E78.5 Hyperlipidemia, unspecified; G89.4 Chronic pain syndrome; I25.10 Atherosclerotic heart disease of native coronary artery without angina pectoris; Z95.810 Presence of automatic (implantable) cardiac defibrillator; Z91.19 Patient's noncompliance with other medical treatment and regimen; G47.33 Obstructive sleep apnea (adult) (pediatric); Z79.4 Long term (current) use of insulin; Z71.6 Tobacco abuse counseling; Y73.8 Miscellaneous gastroenterology and urology devices associated with adverse incidents, not elsewhere classified; I25.5 Ischemic cardiomyopathy; N18.9 Chronic kidney disease, unspecified; E11.22 Type 2 diabetes mellitus with diabetic chronic kidney disease
CPT/HCPCS: 36415; 51702; 71010; 71020; 80048; 80061; 80076; 81003; 82308; 82553; 82607; 82947; 83036; 83735; 83880; 84443; 84484; 85025; 85027; 85610; 85730; 87086; 93005; 93306; 94640; 94760; 96365; 96367; 96374; 96375; 99284; 99285; J0456; J0696; J1205; J1644; J1815; J1940; J2270; J2405; J2920; J2930